=== PATIENT | male | born 1985 | race Caucasian/White ===

== ENCOUNTER 2018-12-13 16:10 | Emergency (ER) | payer MEDICAID ==
[~2018-12-13] VITALS: Ht 154.9 cm; Wt 63.4 kg
[~2018-12-13 16:10] MED LIST: CEPH-443 PO; HYDR-4011 PO; IBUP-1542 PO
[2018-12-13 16:21] VITALS: Ht 154.9 cm; Wt 63.4 kg
[2018-12-13] MEDS ORDERED: LIDOCAINE 2% (MDV) 20 ML INJ INJ STA (18:05)
[2018-12-13] MEDS ORDERED: DIPHTH/TET/ACEL PERTUSS (ADULT) 0.5 ML VIAL IM* ONE (19:00)
[2018-12-13 20:05] VITALS: BP 128/63; PULSE 66; RESP 18
== END 2018-12-13 20:06 | disposition home or self-care (01) ==
LOC: FTE 16:10
DX: S61.211A Laceration without foreign body of left index finger without damage to nail, initial encounter (principal); W31.2XXA Contact with powered woodworking and forming machines, initial encounter; Y92.89 Other specified places as the place of occurrence of the external cause
CPT/HCPCS: 12001; 73140; 90715; Z7502; Z7610